=== PATIENT | male | born 1995 | race Caucasian/White ===

== ENCOUNTER 2018-01-16 18:48 | Emergency (ER) | payer OTHER ==
[~2018-01-16] VITALS: Ht 167.6 cm; Wt 63.6 kg
[2018-01-16] MEDS ORDERED: POVIDONE-IODINE 10% 15 ML SOLUTION UD ONE (18:58)
[2018-01-16 19:18] VITALS: BP 142/71
== END 2018-01-16 19:36 | disposition home or self-care (01) ==
LOC: EMS 18:49
DX: R33.9 Retention of urine, unspecified (principal)
CPT/HCPCS: 51701